=== PATIENT | male | born 1995 | race Caucasian/White ===

== ENCOUNTER 2017-06-06 12:15 | Emergency (ER) | payer MEDICAID, OTHER ==
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
[2017-06-06] MEDS ORDERED: Silver Sulfadiazine 1% Crm 50 GM Tube TOP ONE (12:48)
== END 2017-06-06 13:12 | disposition home or self-care (01) ==
LOC: VM.ED 12:15
DX: T23.132A Burn of first degree of multiple left fingers (nail), not including thumb, initial encounter (principal)
CPT/HCPCS: 16000; 99283; A9270

== ENCOUNTER 2020-07-15 19:31 | Emergency (ER) | payer BC, MEDICAID, OTHER ==
[2020-07-15] MEDS ORDERED: Sodium Chloride 0.9% 10 ML Syringe FLUSH PRN (19:36)
[2020-07-15] MEDS ORDERED: HYDROmorphone 1 MG/ML Syringe IVPUSH ONE ×2 (19:37→21:05)
[2020-07-15] MEDS ORDERED: Ondansetron 4 MG/2 ML SDV IVPUSH ONE (19:37)
[2020-07-15] MEDS ORDERED: Lidocaine 1% with EPINEPHrine 1:100,000 20 ML MDV INFILT SCH (19:45)
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
[2020-07-15 20:21] LABS: CHLORIDE,CL 103 mmol/L (98-107); SODIUM,NA 140 mmol/L (136-145)
[2020-07-15 20:24] LABS: ANION GAP 13.3 mmol/L (10-20)
[2020-07-15] MEDS ORDERED: Metoclopramide 10 MG/2 ML SDV IVPUSH ONE (20:40)
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
== END 2020-07-15 22:24 | disposition short-term general hospital (02) ==
LOC: VM.ED 19:31 → SUPCPDRO 19:31 → VM.ED 22:24
DX: S52.501A Unspecified fracture of the lower end of right radius, initial encounter for closed fracture (principal); S01.81XA Laceration without foreign body of other part of head, initial encounter; S01.01XA Laceration without foreign body of scalp, initial encounter; V27.0XXA Motorcycle driver injured in collision with fixed or stationary object in nontraffic accident, initial encounter
CPT/HCPCS: 12015; 36415; 70450; 70486; 71045; 73030; 73110; 80053; 85025; 85610; 96374; 96375; 96376; 99283; 99285; J1170; J2405; J2765

== ENCOUNTER 2021-04-14 15:49 | Emergency (ER) | payer SELFPAY ==
--- NOTE | 2021-04-14 16:05 | EDM.PDOC ---
ED HPI GENERAL MEDICAL PROBLEM - General Chief Complaint: Gastrointestinal Problem Stated Complaint: ED VISIT Time Seen by Provider: 04/14/21 15:58 Source of Information: Reports: Patient History Limitations: Reports: No Limitations - History of Present Illness INITIAL COMMENTS - FREE TEXT/NARRATIVE: Patient was seen in the clinic in sent her to the ER to be evaluated for ongoing questionable rectal bleeding and tachycardia. Patient says he has some vague epigastric abdominal pain that he rates as about a 1 out of 2 that started today and has had 5 episodes of bright red bloody diarrhea. He states he ate [employer] for lunch with no issues but states that this made the diarrhea a little bit worse. States she has been eating and drinking normally with no issues. 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 He denies any sick contacts He has no other complaints at this time Onset: Today Duration: Hour(s): Location: Reports: Abdomen Quality: Reports: Other (crampy ) Severity: Mild Worsens with: Reports: None. Denies: Eating Associated Symptoms: Reports: No Other Symptoms. Denies: Fever/Chills, Headaches, Loss of Appetite, Malaise, Nausea/Vomiting, Rash, Syncope Bilateral Abdomen Pain Score (Numeric/FACES): 2 - Related Data Allergies Allergy/AdvReac Type Severity Reaction Status Date / Time No Known Drug Allergies Allergy Other Verified 04/14/21 16:11 Home Meds: Home Meds . [No Known Home Meds] 07/15/20 [History] Past Medical History - Past Health History Medical/Surgical History: Denies Medical/Surgical History ED ROS GENERAL - Review of Systems Review Of Systems: See Below Constitutional: Reports: No Symptoms HEENT: Reports: No Symptoms Respiratory: Reports: No Symptoms Cardiovascular: Reports: No Symptoms Endocrine: Reports: No Symptoms GI/Abdominal: Reports: Abdominal Pain, Bloody Stool, Diarrhea. Denies: Constipation, Distension, Flatus, Hematemesis, Mucous in Stool, Nausea, Stool Incontinence, Vomiting : Reports: No Symptoms Musculoskeletal: Reports: No Symptoms Skin: Reports: No Symptoms Neurological: Reports: No Symptoms Psychiatric: Reports: No Symptoms Hematologic/Lymphatic: Reports: No Symptoms Immunologic: Reports: No Symptoms ED EXAM, GI/ABD - Physical Exam Exam: See Below Exam Limited By: No Limitations General Appearance: Alert, WD/WN, No Apparent Distress Eyes: Bilateral: Normal Appearance Nose: Normal Inspection, Normal Mucosa, No Blood Throat/Mouth: Normal Inspection, Normal Lips, Normal Teeth, Normal Gums, Normal Oropharynx, Normal Voice, No Airway Compromise, Other (mmm) Neck: Normal Inspection, Supple, Non-Tender, Full Range of Motion Respiratory/Chest: No Respiratory Distress, Lungs Clear, Normal Breath Sounds, No Accessory Muscle Use, Chest Non-Tender Cardiovascular: Normal Peripheral Pulses, Regular Rate, Rhythm, No Edema, No Gallop, No JVD, No Murmur, No Rub, Tachycardia GI/Abdominal Exam: Normal Bowel Sounds, Soft, No Organomegaly, No Distention, No Abnormal Bruit, No Mass, Tender, Other (Mild tenderness palpation across epigastric area patient has no rebound tenderness he has negative obturator heel slap pelvic rock Ros[place] ) Extremities: Normal Inspection, Normal Range of Motion, Non-Tender, No Pedal Edema, Normal Capillary Refill Neurological: Alert, Oriented, CN II-XII Intact, Normal Cognition, Normal Gait, Normal Reflexes, No Motor/Sensory Deficits Psychiatric: Normal Affect, Normal Mood Skin Exam: Warm, Dry, Intact, Normal Color, No Rash Course - Vital Signs Text/Narrative:: CBC BMP 1 L normal saline bolus Protonix 40 mg IV bently 10 mg po All lab work within normal limits patient was rechecked states he feels 100% better he has no pain at this time heart rate was rechecked and is down to 99 he is okay with course of treatment and discharged home and follow-up with his primary care provider. Patient will be given a prescription for Nexium 40 mg 1 p.o. daily #30 Carafate 1 g p.o. every 12 hours number of 60 and told to follow-up with his primary care provider in the next 24 to 48 hours make sure he drinks plenty of water and eat a bland diet bently 10 mg 1 po qday #30 Rectal was checked negative occult blood was noted patient did have number of 2 internal hemorrhoids felt one at 6:00 1 at 9:00 Last Recorded V/S: Last Vital Signs Temp 37.4 C 04/14/21 15:53 Pulse 98 04/14/21 17:19 Resp 14 04/14/21 17:19 BP 132/74 04/14/21 17:19 Pulse Ox 96 04/14/21 17:19 - Orders/Labs/Meds Orders: Active Orders 24 hr Category Date Time Status Hemoccult [Fecal Occult Bld Scn Imm] [RC] ASDIRECTED Care 04/14/21 17:32 Ordered Labs: Laboratory Tests 04/14/21 04/14/21 Range/Units 16:08 16:08 WBC 9.6 (4.0-10.0) x10^3/uL RBC 4.98 (4.5-6.0) x10^6/uL Hgb 15.2 (14.0-18.0) g/dL Hct 42.0 (40.0-52.0) % MCV 84.3 (78.0-93.0) fL MCH 30.5 (26.0-32.0) pg MCHC 36.2 H (32.0-36.0) g/dL RDW Coeff of Katrin 13.8 (10.0-15.0) % Plt Count 212 (130-400) x10^3/uL Neut % (Auto) 71.8 (50.0-80.0) % Lymph % (Auto) 18.9 L (25.0-50.0) % [place] % (Auto) 8.3 (2.0-11.0) % Eos % (Auto) 0.8 (0.0-4.0) % Baso % (Auto) 0.2 (0.2-1.2) % Sodium 143 (136-145) mmol/L Potassium 3.8 (3.5-5.1) mmol/L Chloride 106 (98-107) mmol/L Carbon Dioxide 25 (21-32) mmol/L Anion Gap 15.8 H (5-15) mmol/L BUN 14 (7-18) mg/dL Creatinine 1.0 (0.70-1.30) mg/dL Est Cr Clr Drug Dosing TNP Estimated GFR (MDRD) > 60 Glucose 90 (70-99) mg/dL Calcium 9.2 (8.5-10.1) mg/dL Meds: Medications Discontinued Medications Generic Name Dose Route Start Last Admin Trade Name Freq PRN Reason Stop Dose Admin Dicyclomine HCl 10 mg 04/14/21 16:06 04/14/21 16:17 Dicyclomine 10 Mg Cap PO 04/14/21 16:07 10 mg ONETIME ONE Administration Sodium Chloride 1,000 mls @ 999 mls/hr 04/14/21 15:59 04/14/21 16:12 Normal Saline IV 04/14/21 16:59 999 mls/hr ONETIME ONE Administration Pantoprazole Sodium 40 mg 04/14/21 15:59 04/14/21 16:17 Pantoprazole 40 Mg Vial IVPUSH 04/14/21 16:00 40 mg ONETIME ONE Administration Departure - Departure Time of Disposition: 17:40 Disposition: Home, Self-Care 01 Condition: Good Clinical Impression: Abdominal pain, Rectal bleeding - Discharge Information *PRESCRIPTION DRUG MONITORING PROGRAM REVIEWED*: No *COPY OF PRESCRIPTION DRUG MONITORING REPORT IN PATIENT LIAT: No (Suspect that the patient has a ulcer we will treat accordingly) Referrals: PCP,None [Primary Care Provider] - Forms: ED Department Discharge Sepsis Event Note (ED) - Focused Exam Vital Signs: Vital Signs Temp Pulse Resp BP Pulse Ox 04/14/21 17:19 98 14 132/74 96 04/14/21 15:53 37.4 C 115 H 18 149/85 H 96 - Problem List & Annotations (1) Abdominal pain SNOMED Code(s): 81441874 Code(s): R10.9 - UNSPECIFIED ABDOMINAL PAIN Status: Acute Current Visit: Yes (2) Rectal bleeding SNOMED Code(s): 26702157 Code(s): K62.5 - HEMORRHAGE OF ANUS AND RECTUM Status: Acute Current Visit: Yes - My Orders Last 24 Hours: My Active Orders 04/14/21 17:32 Hemoccult [Fecal Occult Bld Scn Imm] [RC] ASDIRECTED - Assessment/Plan Last 24 Hours: My Active Orders 04/14/21 17:32 Hemoccult [Fecal Occult Bld Scn Imm] [RC] ASDIRECTED
[2021-04-14] MEDS: Sodium Chloride 0.9% 1,000 ML IV ONE (16:12)
[2021-04-14] MEDS: Pantoprazole 40 MG Vial IVPUSH ONE (16:17)
[2021-04-14] MEDS: Dicyclomine 10 MG Cap PO ONE (16:17)
[2021-04-14 16:28] LABS: CHLORIDE,CL 106 mmol/L (98-107); SODIUM,NA 143 mmol/L (136-145)
[2021-04-14 16:29] LABS: ANION GAP 15.8 mmol/L (5-15)
== END 2021-04-14 18:02 | disposition home or self-care (01) ==
LOC: VM.ED 15:49
DX: K62.5 Hemorrhage of anus and rectum (principal)
CPT/HCPCS: 80048; 85025; 96374; 99284; 99284-25; A9270-GY; C9113; G0328; J7030

== ENCOUNTER 2023-05-03 14:31 | Emergency (ER) | payer OTHER ==
[2023-05-03 14:58] LABS: APPEARANCE,URINE CLEAR (CLEAR); BILIRUBIN,URINE NEGATIVE (NEGATIVE); COLOR,URINE YELLOW (YELLOW); GLUCOSE,URINE NEGATIVE (NEGATIVE); KETONES,URINE NEGATIVE (NEGATIVE); LEUKOCYTE ESTERASE,URINE NEGATIVE (NEGATIVE); NITRITE,URINE NEGATIVE (NEGATIVE); OCCULT BLOOD,URINE NEGATIVE (NEGATIVE); PH,URINE 6.5 (5.0-8.0); PROTEIN,URINE NEGATIVE (NEGATIVE); UROBILINOGEN,URINE 0.2 EU/dL (0.2)
[2023-05-03 15:22] LABS: BASOPHILS PERCENT AUTO 0.1 % (0.2-1.2); EOSINOPHILS PERCENT AUTO 0.6 % (0.0-4.0); HEMATOCRIT 42.2 % (40.0-52.0); IMMATURE GRAN ABSOLUTE AUTO 0.01 x10^3/uL (0.00-0.07); LYMPHOCYTES ABSOLUTE AUTO 1.8 x10^3/uL (1.0-4.8); LYMPHOCYTES PERCENT AUTO 24.6 % (25.0-50.0); MEAN CORPUSCULAR HEMOGLOBIN 30.9 pg (26.0-32.0); MEAN CORPUSCULAR HGB CONC 35.5 g/dL (32.0-36.0); MEAN CORPUSCULAR VOLUME 86.8 fL (78.0-93.0); MONOCYTES ABSOLUTE AUTO 0.5 x10^3/uL (0.0-0.8); MONOCYTES PERCENT AUTO 7.3 % (2.0-11.0); NEUTROPHILS ABSOLUTE AUTO 4.9 x10^3/uL (1.8-7.7); NEUTROPHILS PERCENT AUTO 67.3 % (50.0-80.0); PLATELET COUNT,PLT 212 x10^3/uL (130-400); RED BLOOD CELL COUNT 4.86 x10^6/uL (4.5-6.0); WHITE BLOOD CELL COUNT,WBC 7.2 x10^3/uL (4.0-10.0)
[2023-05-03 15:47] LABS: A/G RATIO 1.21; ALANINE AMINOTRANSFERASE,ALT 43 U/L (16-63); ALBUMIN 4.1 g/dL (3.4-5.0); ALKALINE PHOSPHATASE 65 U/L (46-116); ASPARTATE AMNIOTRANSFERASE,AST 20 U/L (15-37); BILIRUBIN TOTAL 0.5 mg/dL (0.2-1.0); BLOOD UREA NITROGEN,BUN 11 mg/dL (7-18); CALCIUM 8.9 mg/dL (8.5-10.1); CARBON DIOXIDE,CO2 26 mmol/L (21-32); CHLORIDE,CL 108 mmol/L (98-107); CREATINE KINASE,CK 190 U/L (39-308); CREATININE 0.9 mg/dL (0.70-1.30); GLUCOSE RANDOM 95 mg/dL (70-99); POTASSIUM,K 3.7 mmol/L (3.5-5.1); PROTEIN TOTAL,TP 7.5 g/dL (6.4-8.2); SODIUM,NA 143 mmol/L (136-145)
[2023-05-03 15:48] LABS: ANION GAP 12.7 mmol/L (5-15); C-REACTIVE PROTEIN < 0.2 mg/dL (<=0.9); ESTIMATED GFR 122 mL/min (>=60)
== END 2023-05-03 16:05 | disposition home or self-care (01) ==
LOC: VM.ED 14:31
DX: T67.5XXA Heat exhaustion, unspecified, initial encounter (principal)
CPT/HCPCS: 36415; 80053; 81003; 82550; 85025; 86140; 99283; 99285

== ENCOUNTER 2023-05-27 14:41 | Emergency (ER) | payer OTHER ==
[2023-05-27] MEDS ORDERED: cefTRIAXone 1 GM Vial IVPUSH ONE (14:53)
[2023-05-27] MEDS ORDERED: Sodium Chloride 0.9% 1,000 ML IV ONE (14:53)
[2023-05-27] MEDS ORDERED: methylPREDNISolone Sodium Succinate 125 MG/2 ML SDV IVPUSH ONE (14:53)
[2023-05-27] MEDS ORDERED: Albuterol/Ipratropium 3.0-0.5 MG/3 ML Neb Soln NEB ONE (14:53)
[2023-05-27 15:09] LABS: BASOPHILS PERCENT AUTO 0.3 % (0.2-1.2); EOSINOPHILS ABSOLUTE AUTO 0.1 x10^3/uL (0.0-0.5); EOSINOPHILS PERCENT AUTO 1.5 % (0.0-4.0); HEMATOCRIT 46.3 % (40.0-52.0); HEMOGLOBIN 17.3 g/dL (14.0-18.0); IMMATURE GRAN ABSOLUTE AUTO 0.01 x10^3/uL (0.00-0.07); LYMPHOCYTES ABSOLUTE AUTO 1.4 x10^3/uL (1.0-4.8); LYMPHOCYTES PERCENT AUTO 18.8 % (25.0-50.0); MEAN CORPUSCULAR HEMOGLOBIN 31.2 pg (26.0-32.0); MEAN CORPUSCULAR HGB CONC 37.4 g/dL (32.0-36.0); MEAN CORPUSCULAR VOLUME 83.4 fL (78.0-93.0); MONOCYTES ABSOLUTE AUTO 0.8 x10^3/uL (0.0-0.8); MONOCYTES PERCENT AUTO 10.4 % (2.0-11.0); NEUTROPHILS ABSOLUTE AUTO 5.1 x10^3/uL (1.8-7.7); NEUTROPHILS PERCENT AUTO 68.9 % (50.0-80.0); PLATELET COUNT,PLT 257 x10^3/uL (130-400); RED BLOOD CELL COUNT 5.55 x10^6/uL (4.5-6.0); WHITE BLOOD CELL COUNT,WBC 7.4 x10^3/uL (4.0-10.0)
[2023-05-27] MEDS ORDERED: Codeine/Promethazine 10-6.25 MG/5 ML Syrup 5 ML UD Cup PO ONE (15:18)
[2023-05-27 15:27] LABS: A/G RATIO 1.02; ALANINE AMINOTRANSFERASE,ALT 47 U/L (16-63); ALBUMIN 4.4 g/dL (3.4-5.0); ALKALINE PHOSPHATASE 81 U/L (46-116); ANION GAP 18.8 mmol/L (5-15); ASPARTATE AMNIOTRANSFERASE,AST 23 U/L (15-37); BILIRUBIN TOTAL 0.9 mg/dL (0.2-1.0); BLOOD UREA NITROGEN,BUN 10 mg/dL (7-18); C-REACTIVE PROTEIN 0.45 mg/dL (<=0.30); CALCIUM 9.2 mg/dL (8.5-10.1); CARBON DIOXIDE,CO2 23 mmol/L (21-32); CHLORIDE,CL 105 mmol/L (98-107); CREATININE 0.9 mg/dL (0.70-1.30); ESTIMATED GFR 122 mL/min (>=60); GLUCOSE RANDOM 93 mg/dL (70-99); POTASSIUM,K 3.8 mmol/L (3.5-5.1); PROTEIN TOTAL,TP 8.7 g/dL (6.4-8.2); SODIUM,NA 143 mmol/L (136-145)
== END 2023-05-27 16:05 | disposition home or self-care (01) ==
LOC: VM.ED 14:41
DX: J40 Bronchitis, not specified as acute or chronic (principal)
CPT/HCPCS: 36415; 71046; 80053; 83605; 84145; 85025; 86140; 87040; 94640; 96361; 96374; 96375; 99283; 99285-25; A9270-GY; J0696; J2930; J7030; J7620-GY

== ENCOUNTER 2023-08-03 09:00 | Emergency (ER) | payer OTHER | END 2023-08-03 09:26 | disposition home or self-care (01) | LOC: VM.ED 09:00 | DX: F41.9 Anxiety disorder, unspecified (principal) | CPT/HCPCS: 99283 ==

== ENCOUNTER 2025-02-20 10:26 | Emergency (ER) | payer SELFPAY ==
[2025-02-20] MEDS ORDERED: Sodium Chloride 0.9% 10 ML Syringe FLUSH PRN (10:41)
[2025-02-20 10:55] LABS: BASOPHILS PERCENT AUTO 0.2 % (0.2-1.2); EOSINOPHILS ABSOLUTE AUTO 0.1 x10^3/uL (0.0-0.5); EOSINOPHILS PERCENT AUTO 1.1 % (0.0-4.0); HEMATOCRIT 44.2 % (40.0-52.0); HEMOGLOBIN 16.3 g/dL (14.0-18.0); IMMATURE GRAN ABSOLUTE AUTO 0.01 x10^3/uL (0.00-0.07); LYMPHOCYTES PERCENT AUTO 16.1 % (25.0-50.0); MEAN CORPUSCULAR HEMOGLOBIN 30.8 pg (26.0-32.0); MEAN CORPUSCULAR HGB CONC 36.9 g/dL (32.0-36.0); MEAN CORPUSCULAR VOLUME 83.4 fL (78.0-93.0); MONOCYTES ABSOLUTE AUTO 0.5 x10^3/uL (0.0-0.8); MONOCYTES PERCENT AUTO 8.2 % (2.0-11.0); NEUTROPHILS ABSOLUTE AUTO 4.7 x10^3/uL (1.8-7.7); NEUTROPHILS PERCENT AUTO 74.2 % (50.0-80.0); PLATELET COUNT,PLT 216 x10^3/uL (130-400); WHITE BLOOD CELL COUNT,WBC 6.3 x10^3/uL (4.0-10.0)
[2025-02-20] MEDS: LORazepam 2 MG/ML SDV IVPUSH ONE (11:11)
[2025-02-20] MEDS: Codeine/guaiFENesin 10-100 MG/5 ML Syrup 5 ML Cup PO ONE (11:11)
[2025-02-20 11:15] LABS: A/G RATIO 1.11; ALANINE AMINOTRANSFERASE,ALT 44 U/L (16-63); ALBUMIN 4.2 g/dL (3.4-5.0); ALKALINE PHOSPHATASE 71 U/L (46-116); ASPARTATE AMNIOTRANSFERASE,AST 29 U/L (15-37); BILIRUBIN TOTAL 0.8 mg/dL (0.2-1.0); BLOOD UREA NITROGEN,BUN 12 mg/dL (7-18); CALCIUM 8.9 mg/dL (8.5-10.1); CARBON DIOXIDE,CO2 22 mmol/L (21-32); CHLORIDE,CL 101 mmol/L (98-107); GLUCOSE RANDOM 125 mg/dL (70-99); MAGNESIUM 1.8 mg/dL (1.8-2.4); POTASSIUM,K 3.5 mmol/L (3.5-5.1); SODIUM,NA 141 mmol/L (136-145)
[2025-02-20 11:16] LABS: ANION GAP 21.5 mmol/L (5-15); ESTIMATED GFR 106 mL/min (>=60)
== END 2025-02-20 11:57 | disposition home or self-care (01) ==
LOC: VM.ED 10:26
DX: J20.8 Acute bronchitis due to other specified organisms (principal); Z79.51 Long term (current) use of inhaled steroids; Z79.899 Other long term (current) drug therapy
CPT/HCPCS: 71046; 80053; 83735; 84484; 85025; 85379; 87428-QW; 93005; 96374; 99285-25; A9270-GY; J2060

== ENCOUNTER 2025-03-04 08:16 | Emergency (ER) | payer SELFPAY | END 2025-03-04 09:27 | disposition home or self-care (01) | LOC: VM.ED 08:16 | DX: M79.671 Pain in right foot (principal); X50.9XXA Other and unspecified overexertion or strenuous movements or postures, initial encounter | CPT/HCPCS: 73630-RT; 99283 ==